=== PATIENT | male | born 1960 | race Caucasian/White ===

== ENCOUNTER 2016-11-01 09:52 | Inpatient (IN) | payer OTHER ==
[~2016-11-01] VITALS: Ht 172.7 cm; Wt 94.2 kg
[~2016-11-01 09:52] MED LIST changes: -ALEVE 220MG220 MG PO; -ASPI325T6 PO; -CRESTOR20 MG PO; -ROXICODONE 55 MG/TAB PO
[2016-12-07] VITALS (12 sets, daily range): BP systolic 100–143; BP diastolic 59–96; PULSE 53–76; TEMP 96.4–98.2
[2016-12-07] MEDS ORDERED: CRESTOR20 MG PO (01:28)
[2016-12-07] MEDS ORDERED: ALEVE 220MG220 MG PO (01:28)
[2016-12-08 00:26] VITALS: BP 125/75; PULSE 55; TEMP 98.2
[2016-12-08 04:00] VITALS: BP 128/81; PULSE 60; TEMP 97.5
[2016-12-08 06:17] LABS: HEMATOCRIT 38.4 % (42.0-52.0); HEMOGLOBIN 13.3 g/dl (13.5-18.0)
[2016-12-08 07:24] VITALS: BP 126/77; PULSE 67; TEMP 98.3
[2016-12-08] MEDS ORDERED: ASPI325T6 PO (07:37)
[2016-12-08] MEDS ORDERED: ROXICODONE 55 MG/TAB PO (07:38)
== END 2016-12-08 12:20 | disposition home or self-care (01) | DRG 470 ==
LOC: JCC 12-07 05:26
PROVIDERS: Orthopaedic Surgery Sports Medicine
PROC: 0SRD0J9 Replacement of Left Knee Joint with Synthetic Substitute, Cemented, Open Approach (ICD-10-PCS; principal; 2016-12-07 07:30)
DX: M17.12 Unilateral primary osteoarthritis, left knee (principal); F17.220 Nicotine dependence, chewing tobacco, uncomplicated
CPT/HCPCS: C1713; C1776; J0690; J1100; J2250; J2274; J2405; J2704; J7120

== ENCOUNTER → 2016-11-01 | Outpatient (CLI) | payer OTHER ==
[~2016-11-01] MED LIST: ALEVE 220MG220 MG PO; ASPI325T6 PO; BACTRIM DS 8001 TAB PO; CATAFLAM50 MG PO; CEFTIN250 M1 PO; CEPHALEXIN500 M1 PO; CRESTOR20 MG PO; LORTAB 5/500 501 TAB PO; MULTIVITAMIN1 TA1 PO; NO HOME MEDICATIONS; NORCO 325 MG-7.1 TAB PO; ROXICODONE 55 MG/TAB PO; VOLTAREN GEL 1%1 TU TP
== END ==
LOC: COL.RAD 07:30
DX: Z01.818 Encounter for other preprocedural examination (principal); M17.12 Unilateral primary osteoarthritis, left knee

== ENCOUNTER → 2016-11-28 | Outpatient (CLI) | payer OTHER ==
[~2016-11-28] MED LIST changes: +ALEVE 220MG220 MG PO; +ASPI325T6 PO; +CRESTOR20 MG PO; +ROXICODONE 55 MG/TAB PO
== END ==
LOC: COL.LAB 12:56
DX: Z01.812 Encounter for preprocedural laboratory examination (principal); M25.861 Other specified joint disorders, right knee